=== PATIENT | male | born 1960 | race Caucasian/White ===

== ENCOUNTER 2022-04-21 12:32 | Observation (INO) ==
[2022-04-21] MEDS ORDERED: Ondansetron ODT 4 MG TAB.RAPDIS SL PRN (13:53)
[2022-04-21] MEDS ORDERED: Melatonin 3 MG TABLET PO PRN (13:53)
[2022-04-21] MEDS ORDERED: Naloxone 0.4 MG/ML INJ IVP PRN (13:53)
[2022-04-21] MEDS ORDERED: Mag Hydrox/Al Hydrox/Simeth 30 ML UDC PO PRN (13:53)
[2022-04-21] MEDS ORDERED: Dextrose Gel 15 GM/37.5 ML TUBE PO PRN ×2 (13:55)
[2022-04-21] MEDS ORDERED: D5% in Water 1,000 ML IVC PRN (13:55)
[2022-04-21] MEDS ORDERED: *HR* Dextrose 50 % in Water (Syg) 50 ML SYRINGE IVP PRN (13:55)
[2022-04-21] MEDS ORDERED: Regadenoson 0.4 MG/5 ML SYRINGE IVP ONE (14:05)
[2022-04-21] MEDS ORDERED: Aspirin 325 MG TABLET PO ONE (14:23)
[2022-04-21] MEDS ORDERED: Morphine Sulfate 2 MG/ML SYRINGE IVP PRN (14:37)
[2022-04-21] MEDS ORDERED: Nitroglycerin 0.4 MG TAB.SUBL SL PRN (14:37)
[2022-04-21 14:38] LABS: Hematocrit 49.4 % (37.5-50.1); Hemoglobin 17.7 g/dL (12.9-16.9); Mean Corpuscular HGB Conc 35.8 g/dL (31.6-35.5); Mean Corpuscular Hemoglobin 29.9 pg (28.0-33.3); Mean Corpuscular Volume 83.4 fL (83.0-100.0); Mean Platelet Volume 10.2 fL (9.4-12.4); Platelet Count 215 K/mcL (140-400); Red Blood Count 5.92 M/mcL (4.19-5.50); Red Cell Distribution Width 13.2 % (11.5-14.5); White Blood Count 8.2 K/mcL (4.3-11.1)
[2022-04-21 15:00] LABS: BUN/Creatinine Ratio 14 (6-26); Blood Urea Nitrogen 13 mg/dL (8-23); Calcium 9.5 mg/dL (8.6-10.3); Carbon Dioxide 21 mEq/L (23-29); Chloride 100 mEq/L (98-107); Glucose 330 mg/dL (70-105); Magnesium 1.8 mg/dL (1.6-2.6); Osmolality,Calculated 287 (280-300); Potassium 3.8 mEq/L (3.5-5.1); Sodium 132 mEq/L (136-145); Troponin I < 0.03 ng/mL (< 0.04); eGFR For African Americans > 60 (> 60); eGFR For Non-African Americans > 60 (> 60)
[2022-04-21] MEDS: Insulin LISPRO 300 UNITS/3 ML VIAL SUBQ SCH (17:01)
[2022-04-21] MEDS ORDERED: Insulin DETEMIR 100 UNIT/ML X5UNITS SUBQ ONE (19:19)
[2022-04-21] MEDS ORDERED: Insulin LISPRO 300 UNITS/3 ML VIAL SUBQ SCH (21:00)
[2022-04-22 02:22] LABS: Hematocrit 46.7 % (37.5-50.1); Hemoglobin 16.8 g/dL (12.9-16.9); Mean Corpuscular Hemoglobin 29.8 pg (28.0-33.3); Mean Corpuscular Volume 82.9 fL (83.0-100.0); Mean Platelet Volume 9.9 fL (9.4-12.4); Platelet Count 249 K/mcL (140-400); Red Blood Count 5.63 M/mcL (4.19-5.50); Red Cell Distribution Width 13.2 % (11.5-14.5)
[2022-04-22 02:38] LABS: INR 0.9; Prothrombin Time 10.1 Seconds (9.4-12.1)
[2022-04-22 02:42] LABS: BUN/Creatinine Ratio 20 (6-26); Blood Urea Nitrogen 21 mg/dL (8-23); Calcium 9.2 mg/dL (8.6-10.3); Carbon Dioxide 21 mEq/L (23-29); Chloride 101 mEq/L (98-107); Glucose 201 mg/dL (70-105); Osmolality,Calculated 283 (280-300); Potassium 3.2 mEq/L (3.5-5.1); Sodium 132 mEq/L (136-145); eGFR For African Americans > 60 (> 60); eGFR For Non-African Americans > 60 (> 60)
[2022-04-22 03:20] LABS: Estimated Average Glucose 324 mg/dl; Hemoglobin A1C 12.9 %
[2022-04-22] MEDS ORDERED: Regadenoson 0.4 MG/5 ML SYRINGE IVP ONE (06:29)
[2022-04-22] MEDS ORDERED: lisinopriL 10 MG TABLET PO SCH (09:00)
[2022-04-22] MEDS ORDERED: Aspirin Enteric Coated 81 MG Tablet PO SCH (09:00)
[2022-04-22] MEDS: Insulin LISPRO 300 UNITS/3 ML VIAL SUBQ SCH (09:22)
[2022-04-22 10:46] VITALS: BP 144/96; PULSE 60; TEMP 97.3; O2SAT 97
== END 2022-04-22 13:33 | disposition home or self-care (01) ==
LOC: 3BNU → SUATTDRO 13:14
PROVIDERS: ADMIT Family Medicine; ATTEND Family Medicine